=== PATIENT | female | born 1960 | race Two or more races ===

== ENCOUNTER 2023-03-12 21:06 | Emergency (ER) | payer OTHER ==
[~2023-03-12] VITALS: Ht 170.2 cm; Wt 68.1 kg
[2023-03-12 23:48] VITALS: BP 146/99
== END 2023-03-12 23:48 | disposition home or self-care (01) ==
LOC: ER 21:10
DX: S00.93XA Contusion of unspecified part of head, initial encounter (principal); W19.XXXA Unspecified fall, initial encounter; Y93.89 Activity, other specified; Y92.89 Other specified places as the place of occurrence of the external cause; Y99.8 Other external cause status
CPT/HCPCS: 70450

== ENCOUNTER 2025-10-16 14:28 | Emergency (ER) | payer OTHER ==
[~2025-10-16] VITALS: Ht 170.2 cm; Wt 66.6 kg
[2025-10-16 14:30] VITALS: BP 163/94; PULSE 97; RESP 15; TEMP 97.3; O2SAT 98
== END 2025-10-16 15:00 | disposition left against medical advice (07) ==
LOC: ER 14:28
DX: R03.0 Elevated blood-pressure reading, without diagnosis of hypertension (principal); Z79.899 Other long term (current) drug therapy